=== PATIENT | female | born 1950 | race Caucasian/White ===

== ENCOUNTER 2017-03-09 09:59 | Outpatient (CLI) | payer OTHER | END 2017-03-09 10:00 | LOC: RAD 09:59 | PROVIDERS: ATTEND Family Medicine | DX: Z78.0 Asymptomatic menopausal state (principal) | CPT/HCPCS: 77080 ==

== ENCOUNTER 2017-09-02 07:50 | Outpatient (CLI) | payer OTHER ==
[2017-09-02 08:45] LABS: eGFR (African) > 60; eGFR (Non-African) > 60
== END 2017-09-02 07:52 ==
LOC: LAB 07:50
PROVIDERS: ATTEND Family Medicine
DX: I10 Essential (primary) hypertension (principal); R73.9 Hyperglycemia, unspecified
CPT/HCPCS: 36415; 80053; 80061; 83036

== ENCOUNTER 2017-09-07 10:29 | Outpatient (CLI) | payer OTHER | END 2017-09-07 10:30 | LOC: RT 10:29 | PROVIDERS: ATTEND Family Medicine | DX: R07.9 Chest pain, unspecified (principal) ==

== ENCOUNTER 2017-10-06 12:21 | Outpatient (CLI) | payer OTHER | END 2017-10-06 12:22 | LOC: CARD 12:21 | PROVIDERS: ATTEND Internal Medicine Cardiovascular Disease | DX: R07.9 Chest pain, unspecified (principal); I10 Essential (primary) hypertension | CPT/HCPCS: G0463 ==

== ENCOUNTER 2018-09-06 07:04 | Outpatient (CLI) | payer OTHER ==
[2018-09-06 08:14] LABS: eGFR (Non-African) > 60
== END 2018-09-06 13:12 ==
LOC: LAB 07:04
PROVIDERS: ATTEND Family Medicine
DX: I10 Essential (primary) hypertension (principal)
CPT/HCPCS: 36415; 80053; 80061

== ENCOUNTER 2018-09-09 10:19 | Outpatient (CLI) | payer OTHER ==
[2018-09-09 10:46] LABS: MEAN CORPUSCULAR HEMOGLOBIN 29.7 pg (28.0-34.0)
== END 2018-09-09 15:33 ==
LOC: LAB 10:19
PROVIDERS: ATTEND Family Medicine
DX: K62.5 Hemorrhage of anus and rectum (principal)
CPT/HCPCS: 36415; 85027